=== PATIENT | male | born 2000 | race Caucasian/White ===

== ENCOUNTER 2020-08-12 12:34 | Emergency (ER) | payer BC, SELFPAY ==
[2020-08-12 12:40] VITALS: BP 127/60; PULSE 75; RESP 16; TEMP 37; O2SAT 100
--- NOTE | 2020-08-12 12:46 | ED.GENADULT ---
HPI - General Adult General Chief complaint: Unspecified Stated complaint: bloody stool Time Seen by Provider: 08/12/20 12:46 Source: patient Mode of arrival: ambulatory Limitations: no limitations History of Present Illness HPI narrative: 20-year-old male patient presents to the [facility] with complaints of rectal bleeding that started approximately 30 minutes prior to arrival today. Patient states that he thought he was having diarrhea went to the bathroom and when he got up from the toilet he saw nothing but bright red blood. Patient states there was no stool in the toilet at that time. Patient denies any abdominal pain, nausea or vomiting. Patient does participate in anal sex but states that the last time he had anal sex was approximately 3 weeks ago. Patient states he has never had issues with bleeding from the rectum in the past. Related Data Home Medications Medication Instructions Recorded Confirmed No Home Medications 08/12/20 08/12/20 Allergies Allergy/AdvReac Type Severity Reaction Status Date / Time No Known Allergies Allergy Unverified 08/12/20 12:45 Review of Systems Review of Systems: Narrative: CONSTITUTIONAL: Denies fever, chills, or sweats. EYES: Denies visual changes, redness, or discharge. ENT: Denies rhinorrhea, congestion, sore throat, or otalgia. CARDIOVASCULAR: Denies chest pain, palpitations, or edema. RESPIRATORY: Denies cough or dyspnea. GASTROINTESTINAL: Denies abdominal pain, nausea, vomiting, or diarrhea. Positive rectal bleeding GENITOURINARY: Denies dysuria or hematuria. SKIN: Denies rash or itching. MUSCULOSKELETAL: Denies back pain, joint pain, or myalgia. NEUROLOGIC: Denies headache, numbness, or weakness. PSYCHIATRIC: Denies anxiety or depression. [facility] Past Medical History Medical History (Updated 08/12/20 @ 13:14 by TRISTAN Fritz) No significant past medical history Social History Social History Gender identity (if verbalized by the patient): Male Exam Narrative: Exam Narrative: GENERAL: Well-appearing, well-nourished, and in no acute distress. HEAD: Normocephalic, atraumatic. EYES: PERRLA and EOMI. ENT: Nares clear, no rhinorrhea or epistaxis. Mucous membranes moist. NECK: Supple. No lymphadenopathy CHEST: Clear to auscultation. No respiratory distress. HEART: Regular rate and rhythm. No murmur heard. Normal peripheral pulses. ABDOMEN: Soft, nontender, nondistended, normal active bowel sounds. RECTAL: Patient has no obvious hemorrhoids noted at this time. Guaiac was done and was positive for blood. EXTREMITIES: Normal range of motion. No edema. SKIN: Warm, dry, no rash. NEURO: No focal deficits. Alert and oriented x3. Course Vital Signs Vital signs: Vital Signs Temperature 37.0 C 08/12/20 12:40 Pulse Rate 75 08/12/20 12:40 Respiratory Rate 16 08/12/20 12:40 Blood Pressure 127/60 08/12/20 12:40 Pulse Oximetry 100 08/12/20 12:40 Temperature 37.0 C 08/12/20 12:40 Pulse Rate 75 08/12/20 12:40 Respiratory Rate 16 08/12/20 12:40 Blood Pressure 127/60 08/12/20 12:40 Pulse Oximetry 100 08/12/20 12:40 Vital signs reviewed Medical Decision Making Differential Diagnosis Differential Diagnosis: Differential diagnosis: Hemorrhoids, rectal bleeding, GI bleed. Discussed with patient that he definitely has blood coming from the rectum however I do not see any obvious hemorrhoids and the fact that he does participate in rectal intercourse is concerning about a possible fissure. Discussed with him I would like to go the ER for further evaluation. Patient states that he does not wish to go to the ER at this time and that he would like to get a second opinion from his own doctors will speak to his parents about the situation. Discussed with patient I can definitely allow him some time to make some phone calls if he wished while he still in the clinic and then transfer him to the ER. Patient states that he does not want t
== END 2020-08-12 13:08 | disposition left against medical advice (07) ==
PROVIDERS: Emergency Provider Nurse Practitioner Family
DX: K62.5 Hemorrhage of anus and rectum (principal)
CPT/HCPCS: 99211; G0463

== ENCOUNTER 2021-01-03 19:34 | Emergency (ER) | payer BC, SELFPAY ==
[2021-01-03 19:37] VITALS: BP 112/67; PULSE 72; RESP 18; TEMP 36.9; O2SAT 100
--- NOTE | 2021-01-03 19:40 | ED.GENADULT ---
HPI - General Adult General Chief complaint: Urogenital-Male Stated complaint: possible hemorrhoid Time Seen by Provider: 01/03/21 19:40 Source: patient and RN notes reviewed History of Present Illness HPI narrative: Patient is a 20-year-old male who presents the urgent care with complaints of rectal bleeding. Patient states that he has had some issues recently and had a colonoscopy done with polyps removed. Patient states that he did call his GI doctor this afternoon and they were unable to get him in for couple weeks. Patient states that he only notices the bleeding when he wipes and is having some itching and pain to the rectum. Patient states he does not have an external hemorrhoid. States that he has not had a bowel movement in some days and has been straining to make a bowel movement. Patient has not taken any [id number] stool softeners. Patient states that his sexual preference is anal sex but denies of any recently. Denies of any nausea vomiting, diarrhea. No other acute complaints. No acute distress noted. Patient aware of the plan of care. Some parts of this dictation were generated by voice recognition software and may contain typographical and/or grammatical inaccuracies. Related Data Allergies Allergy/AdvReac Type Severity Reaction Status Date / Time No Known Allergies Allergy Verified 01/03/21 19:42 Review of Systems Review of Systems: CONSTITUTIONAL: Denies fever, chills, or sweats. EYES: Denies visual changes, redness, or discharge. ENT: Denies rhinorrhea, congestion, sore throat, or otalgia. CARDIOVASCULAR: Denies chest pain, palpitations, or edema. RESPIRATORY: Denies cough or dyspnea. GASTROINTESTINAL: Denies abdominal pain, nausea, vomiting, or diarrhea. Reports of rectal bleeding GENITOURINARY: Denies dysuria or hematuria. SKIN: Denies rash or itching. MUSCULOSKELETAL: Denies back pain, joint pain, or myalgia. NEUROLOGIC: Denies headache, numbness, or weakness. All other systems reviewed are negative, except as documented in HPI. [facility] Past Medical History Medical History (Updated 01/03/21 @ 19:51 by TRISTAN Shepherd) No significant past medical history Social History Social History Gender identity (if verbalized by the patient): Male Comments At the time of my signature, I reviewed and agree with the nursing past medical, surgical, social, and family history. There is no relevant family history pertinent to the patient complaint. Exam Narrative: GENERAL: This is a well-nourished, well-developed patient, in no apparent distress. HEAD: normocephalic, atraumatic. EYES: PERRL. Sclera clear/white. Vision is grossly intact. EARS: External ears normal NOSE: External nose normal with no obvious nasal discharge, nares without redness, no rhinorrhea. THROAT: Mucous membranes moist NECK: Neck supple CARDIOVASCULAR: Regular rate and rhythm without murmurs, gallops, or rubs. RESPIRATORY: Clear to auscultation. Breath sounds equal bilaterally. No wheezes, rales, or rhonchi. GASTROINTESTINAL: Abdomen soft, non-tender, nondistended. Bowel sounds are active. Patient refused direct visualization or digital rectal exam. SKIN: warm, intact with no suspicious lesions or rash, good texture and turgor. NEURO: awake, alert, and oriented to person, place and time. There were no obvious focal neurologic abnormalities. EXTREMITIES: No clubbing, cyanosis, or edema. Course Vital Signs Vital signs: Vital Signs Temperature 98.4 F 01/03/21 19:37 Pulse Rate 72 01/03/21 19:37 Respiratory Rate 18 01/03/21 19:37 Blood Pressure 112/67 01/03/21 19:37 Pulse Oximetry 100 01/03/21 19:37 Temperature 98.4 F 01/03/21 19:37 Pulse Rate 72 01/03/21 19:37 Respiratory Rate 18 01/03/21 19:37 Blood Pressure 112/67 01/03/21 19:37 Pulse Oximetry 100 01/03/21 19:37 Reviewed Medical Decision Making MDM Narrative Medical decision making narrative: Advised the patient to take Daryl
[2021-01-03 19:49] VITALS: BP 112/67; PULSE 72; RESP 18; TEMP 36.9; O2SAT 100
== END 2021-01-03 19:53 | disposition home or self-care (01) ==
PROVIDERS: Emergency Provider Nurse Practitioner Family
DX: K64.8 Other hemorrhoids (principal)
CPT/HCPCS: 99213; G0463